=== PATIENT | male | born 1965 | race Two or more races ===

== ENCOUNTER 2019-10-19 23:40 | Emergency (ER) | payer MEDICAID ==
[~2019-10-19] VITALS: Ht 188 cm; Wt 136.1 kg
--- NOTE | 2019-10-20 | NUR ---
BLOOD DRAWN AND SENT TO THE LAB.
--- NOTE | 2019-10-20 00:03 | NUR ---
PATIENT CAME TO ER BIB RA FROM HOME C/O LEFT SIDED CHEST PAIN RADIATING TO THE LEFT ARM SINCE 4-6 HOURS ESTIMATOR LUMBER. PATIENT STATES THAT HE WAS WALKING WITH HIS DAUGHTERS TODAY WHEN HE MADE MULTIPLE STOPS WHILE WALKING TO CATCH HIS BREATH. PATIENT STATES HE HAS BEEN FEELING SHORT OF BREATH, DIZZY, AND HEADACHE ALL DAY TODAY. PATIENT STATES THAT THE CHEST PAIN CAME EARLIER. PATIENT IS AAOX4. CHEST RISING AND FALLING EQUALLY. PATIENT IS CONNECTED TO THE MONITOR. PLACED ON 2L OF N/C FOR COMFORT AT 98% O2 SATURATION. 92% O2 SATURATION ON ROOM AIR.
[2019-10-20 00:11] LABS: BASOPHILS # (AUTO) 0.1 /CMM (0.0-0.2); BASOPHILS % (AUTO) 0.7 % (0.0-2.0); HEMATOCRIT 37 % (39-51); HEMOGLOBIN 11.7 g/dL (13.5-17.5); LYMPHOCYTES # (AUTO) 2.3 /CMM (0.8-4.8); LYMPHOCYTES % (AUTO) 18.5 % (20.0-44.0); MEAN CORPUSCULAR HGB CONC 32 g/dl (31.0-36.0); MEAN CORPUSCULAR VOLUME 76 fL (80-96); MONOCYTES # (AUTO) 0.8 /CMM (0.1-1.30); MONOCYTES % (AUTO) 6.9 % (2.0-12.0); NEUTROPHILS # (AUTO) 8.9 /CMM (1.8-8.9); NEUTROPHILS % (AUTO) 71.9 % (43.0-81.0); PLATELET COUNT (AUTO) 347 /CMM (150-450); RED BLOOD CELL COUNT(AUTO) 4.91 MIL/uL (4.5-6.0); WHITE BLOOD COUNT (AUTO) 12.3 K/uL (4.3-11.0)
[2019-10-20 00:26] LABS: D-DIMER 0.85 mg/L(FEU (0.17-0.50)
--- NOTE | 2019-10-20 00:38 | NUR ---
COVID SWAB SAMPLE COLLECTED AND SENT TO THE LAB.
[2019-10-20 00:42] LABS: ALBUMIN 3.2 g/dL (3.4-5.0); BILIRUBIN,DIRECT 0.1 mg/dL (0.0-0.2); BILIRUBIN,TOTAL 0.3 mg/dL (0.2-1.0); CALCIUM, SERUM 8.2 mg/dL (8.5-10.1); CREATININE 1.5 mg/dL (0.6-1.3); TOTAL PROTEIN, SERUM 7.3 g/dL (6.4-8.2)
--- NOTE | 2019-10-20 03:41 | NUR ---
[facility] CALLED REGARDING EKG AND COVID RESULT. REQUESTING FAX.
--- NOTE | 2019-10-20 03:43 | NUR ---
EKG AND COVID RESULTS FAXED PER REQUEST OF [facility].
--- NOTE | 2019-10-20 05:26 | NUR ---
PATIENT AMBULATED TO THE RESTROOM WITH STEADY GAIT.
--- NOTE | 2019-10-20 05:29 | NUR ---
PT ACCEPTED TO [facility] BY DR ZHOU. # FOR REPORT [phone].
--- NOTE | 2019-10-20 05:39 | NUR ---
[facility] ambulance pickup eta: [phone]
--- NOTE | 2019-10-20 06:34 | NUR ---
PATIENT IS SLEEPING. EASILY AROUSABLE THROUGH TACTILE AND VERBAL STIMULI. CONNECTED TO MONITOR. BREATHING EVENLY AND UNLABORED ON ROOM AIR. SIDERAILS ARE UP FOR SAFETY. PATIENT IS GIVEN A CALL LIGHT.
--- NOTE | 2019-10-20 06:41 | NUR ---
REPORT GIVEN TO LATASHA. Addendum: 10/20/19 at 0642 by DANIELLA REPORT GIVEN TO LATASHA SNEED AT [facility] FOR [facility].
--- NOTE | 2019-10-20 07:26 | NUR ---
REPORT GIVEN TO GIAN SNEED FOR KEMAL.
--- NOTE | 2019-10-20 07:27 | NUR ---
ENDORSEMENT RECEIVED FROM NICOLE SNEED FOR KEMAL, PATIENT IN BED ASLEEP, EASILY AROUSABLE BY VOICE. HOOKED TO MONITOR, VSS. NO C/O PAIN AT THIS TIME. WILL CONTINUE TO MONITOR ACCORDINGLY. KEPT SAFE AND COMFORTABLE.
[2019-10-20] MEDS ORDERED: POTASSIUM CHLORIDE 20 MEQ TAB.PRT.SR PO ONE ×2 (07:54→08:00)
[2019-10-20 08:12] VITALS: BP 142/91
--- NOTE | 2019-10-20 08:15 | NUR ---
PICKED UP BY [facility] [address] IN STABLE CONDITION. VSS. NO C/O PAIN. NO DISTRESS NOTED. PATIENT WILL BE TRANSFERRED TO [facility].
== END 2019-10-20 08:21 | disposition short-term general hospital (02) ==
LOC: ER 23:45
DX: R07.9 Chest pain, unspecified (principal); I11.0 Hypertensive heart disease with heart failure; I50.9 Heart failure, unspecified; E87.6 Hypokalemia; R94.31 Abnormal electrocardiogram [ECG] [EKG]; Z20.828 Contact with and (suspected) exposure to other viral communicable diseases; I45.10 Unspecified right bundle-branch block; E11.9 Type 2 diabetes mellitus without complications; Z90.49 Acquired absence of other specified parts of digestive tract
CPT/HCPCS: 36415; 71045; 80048; 80076; 83880; 84484; 85025; 85378; 85730; 87426; 93005; 99285; C9803